=== PATIENT | female | born 1965 | race African-American/Black ===

== ENCOUNTER 2017-09-27 05:46 | Inpatient (IN) | payer OTHER ==
[2017-09-27] VITALS (21 sets, daily range): BP systolic 72–176; BP diastolic 35–89; PULSE 52–58; RESP 12–16; Ht 167.6 cm; Wt 98.5 kg
[~2017-09-27] VITALS: Ht 167.6 cm; Wt 98.5 kg
[2017-09-27] MEDS ORDERED: ONDANSETRON 4 MG INJ IV STA (06:34)
[2017-09-27] MEDS ORDERED: morphine 4 MG/ML VIAL IV STA ×2 (06:34→10:25)
[2017-09-27] MEDS ORDERED: SOD CHLORIDE 0.9% 1,000 ML IV STA (06:34)
--- NOTE | 2017-09-27 06:34 | ERD ---
ER Documentation Chief Complaint Chief Complaint abdominal hernia pain since yesterday HPI 52-year-old female with a history of diabetes mellitus type 2, hypertension, hyperlipidemia and umbilical hernia, ambulatory to the ED complaining of 1 day history of worsening, moderate to severe pain abdominal pain. Nausea but no vomiting, diarrhea or constipation. No hematemesis, hematochezia or melanotic stools. No relieving or exacerbating factors. Last bowel movement was yesterday. Hernia has been irreducible for several years. No chest pain, palpitations or shortness of breath. Denies dysuria, polyuria, hematuria or flank pain. No fevers or chills ROS All systems reviewed and are negative except as per history of present illness. Medications Home Meds Reported Medications Atorvastatin Calcium* (Atorvastatin Calcium*) 20 Mg Tablet, 20 MG PO QHS, #30 TAB 09/27/17 Metformin Hcl* (Metformin Hcl*) 500 Mg Tablet, 500 MG PO WITH DINNER, #30 TAB 09/27/17 Allergies Allergies: Coded Allergies: No Known Drug Allergies (Verified Allergy, Unknown, 09/27/17) PMhx/Soc Reviewed in chart. As per HPI. History of Surgery: No Hx Neurological Disorder: No Hx Respiratory Disorders: No Hx Cardiac Disorders: Yes (Hypertension) Hx Psychiatric Problems: No Hx Miscellaneous Medical Probl: Yes (Diabetes mellitus type 2, hyperlipidemia) Hx Alcohol Use: No Hx Substance Use: No Hx Tobacco Use: No FmHx No family history of stroke or cancer Physical Exam Vitals Vital Signs Date Time Temp Pulse Resp B/P Pulse Ox O2 Delivery O2 Flow Rate FiO2 09/27/17 09:38 65 20 166/80 100 Room Air 09/27/17 05:51 97.6 66 20 202/96 98 Physical Exam Const: Alert, moderate distress due to pain. Head: Atraumatic Eyes: Normal Conjunctiva ENT: Normal External Ears, Nose and Mouth. Neck: Full range of motion. Nontender Resp: Clear to auscultation bilaterally Cardio: Regular rate and rhythm, no murmurs Abd: Soft, obese, large, tender, nonreducible periumbilical hernia. No rebound or guarding. Normal bowel sounds. Skin: No petechiae or rashes Back: No midline or flank tenderness Ext: No cyanosis, or edema Neur: Awake and alert. No focal deficit observed. Psych: Normal Mood and Affect Result Diagram: 09/27/17 0700 09/27/17 0700 Results 24 hrs Laboratory Tests Test 09/27/17 07:00 White Blood Count 10.010^3/ul Red Blood Count 4.6610^6/ul Hemoglobin 14.6g/dl Hematocrit 43.1% Mean Corpuscular Volume 92.5fl Mean Corpuscular Hemoglobin 31.3pg Mean Corpuscular Hemoglobin Concent 33.9g/dl Red Cell Distribution Width 13.2% Platelet Count 26306^3/UL Mean Platelet Volume 10.2fl Neutrophils % 55.4% Lymphocytes % 33.1% Monocytes % 8.1% Eosinophils % 2.2% Basophils % 0.9% Nucleated Red Blood Cells % 0.0/100WBC Neutrophils # 5.610^3/ul Lymphocytes # 3.310^3/ul Monocytes # 0.810^3/ul Eosinophils # 0.210^3/ul Basophils # 0.110^3/ul Nucleated Red Blood Cells # 0.010^3/ul Urine Color STRAW Urine Clarity CLEAR Urine pH 6.0 Urine Specific [place] 1.011 Urine Ketones NEGATIVEmg/dL Urine Nitrite NEGATIVEmg/dL Urine Bilirubin NEGATIVEmg/dL Urine Urobilinogen NEGATIVEmg/dL Urine Leukocyte Esterase NEGATIVELeu/ul Urine Microscopic RBC 0/HPF Urine Microscopic WBC 1/HPF Urine Bacteria FEW/HPF Urine Hemoglobin 1+mg/dL Urine Glucose NEGATIVEmg/dL Urine Total Protein NEGATIVEmg/dl Sodium Level 148mmol/L Potassium Level 3.9mmol/L Chloride Level 109mmol/L Carbon Dioxide Level 26mmol/L Anion Gap 17 Blood Urea Nitrogen 17mg/dl Creatinine 1.48mg/dl Glucose Level 108mg/dl Calcium Level 10.1mg/dl Lipase 133U/L Current Medications Medications (Trade) Dose Ordered Sig/Radha Route PRN Reason Start Time Stop Time Status Last Admin Dose Admin Sodium Chloride (NS) 1,000 ml @ 1,000 mls/hr Q1H STAT IV 09/27/17 06:34 09/27/17 07:33 DC 09/27/17 07:02 Morphine Sulfate (morphine) 4 mg ONCE STAT IV 09/27/17 06:34 09/27/17 06:36 DC 09/27/17 07:00 Ondansetron HCl (Zofran Inj) 4 mg ONCE STAT IV 09/27/17 06:34 09/27/17 06:36 DC 09/27/17 07:01 Ketorolac Tromethamine 15 mg 15 mg ONCE STAT IV 09/27/17 09:02 09/27/17 09:03 DC 09/27/17 09:11 Sodium Chloride (NS) 1,000 ml @ 150 mls/hr Q6H40M ONCE IV 09/27/17 09:21 09/27/17 16:00 Ondansetron HCl (Zofran Inj) 4 mg BRIDGE ORDER PRN IV NAUSEA AND/OR VOMITING 09/27/17 10:00 09/28/17 09:59 Acetaminophen (Tylenol Tab) 650 mg ER BRIDGE PRN PO MILD PAIN/FEVER 09/27/17 10:00 09/28/17 09:59 LABS: Mild hypernatremia and elevated creatinine. Otherwise unremarkable. EKG: Time: 09: 39. Sinus rhythm. Ventricular rate 64. CA interval 214 ms consistent with first-degree AV block. Normal QRS. No acute ST-T wave changes. No ectopy. EP interpretation: Abnormal ECG. IMAGING: Chest AP portable: Cardiac silhouette is normal. The costophrenic angles are clear. No mediastinal widening. No abnormalities of the bony thorax. No effusions or infiltrates. Interpretation: Chest x-ray. PROCEDURE: CT of the abdomen and pelvis without contrast CLINICAL INDICATION: Abdominal pain TECHNIQUE: Spiral CT images through the abdomen and pelvis without the use of contrast. The administered radiation dose is CTDI 20.89 mGy and DLP 1224.64 mGy*cm. Coronal and sagittal reformatted images were submitted. One or more of the following dose reduction techniques were used: automated exposure control, adjustment of the mA and/or kV according to patient size, or use of iterative reconstruction technique. DICOM images are available. COMPARISON: None FINDINGS: Lack of oral and intravenous contrast somewhat limits evaluation. There is bibasilar linear atelectasis. No pleural effusion is seen. The liver, spleen, adrenal glands and pancreas are normal in appearance. There is no evidence of cholelithiasis or biliary ductal dilatation. The kidneys are normal in size and contour. There is no evidence of hydronephrosis or nephrolithiasis. Ill-defined hypodense cortical lesion and a punctate calcification are seen in the upper pole of the left kidney. The aorta is normal in caliber. No adenopathy.. There is no evidence for bowel obstruction , free air, fluid, or abscess. The appendix is normal in appearance. There is colonic diverticulosis without evidence of diverticulitis. There is a large midline ventral hernia containing fat and transverse colon. The proximal transverse colon and ascending colon are markedly distended, measuring up to 8 cm. Abundant stool is present in the proximal ascending colon, cecum with fecal like material in the colon. . The uterus is retroverted, enlarged and lobulated. The bladder is unremarkable. The osseous structures are intact. There are disc bulges or central protrusions at the L4-5 and L5-S1 levels. < IMPRESSION: Large ventral hernia containing fat and transverse colon. Distended proximal transverse and ascending colon. Abundant stool in the proximal ascending colon. Colonic diverticulosis without evidence of acute diverticulitis.. Lobulated enlarged uterus, probable fundal and anterior uterine leiomyomas. Recommend correlation with ultrasound. Calcified hypodense cortical lesion in the upper pole of the left kidney likely complicated cyst.. RPTAT: HCNS Physician Isiah Date Time Electronically viewed and signed by Physician Isiah on 09/27/2017 08: 27 CS/ Procedures/MDM DOCUMENTS REVIEWED: ED nurse, no prior records REEXAMINATION/REEVALUATION: Time: 08:10. Doing well. Pain decreased. Time: 09:00. Worsening pain. Nausea but no vomiting. MEDICAL DECISION MAKIN-year-old female with a history of diabetes mellitus type 2, hypertension, hyperlipidemia and umbilical hernia, ambulatory to the ED complaining of 1 day history of worsening, moderate to severe pain abdominal pain with inability to reduce the hernia. CT scan of the abdomen and pelvis without contrast performed to evaluate for hernia incarceration, bowel obstruction, mesenteric ischemia, abdominal aortic aneurysm, appendicitis, diverticulitis and obstructive uropathy reveals large ventral hernia containing transverse colon with dilated loops of bowel and significant constipation but no bowel obstruction. No acute evidence of strangulation. Surgery, Dr. Lewis consulted. Probable uterine leiomyoma. Poorly controlled hypertension without evidence of hypertensive urgency or emergency. Patient will be admitted for surgical consultation, pain control, further evaluation and management. Counseled patient and family regarding diagnostic workup, diagnosis and need for admission. CALLS/CONSULTS: Time 09:21, Dr. Lewis, will consult CALLS/CONSULTS: Time: 09:34, Dr. Abdi, admit under Dr. Segovia. PATIENT CARE TRANSITIONED: Time: 09:40, Dr. Segovia. 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
[2017-09-27 07:51] LABS: BASOPHIL # 0.1 10^3/ul (0.0-0.1); BASOPHILS % 0.9 % (0.0-2.0); EOSINOPHILS # 0.2 10^3/ul (0.0-0.5); EOSINOPHILS % 2.2 % (0.0-7.0); HEMATOCRIT 43.1 % (37.0-47.0); HEMOGLOBIN 14.6 g/dl (12.0-16.0); LYMPHOCYTES # 3.3 10^3/ul (0.8-2.9); LYMPHOCYTES % 33.1 % (15.0-51.0); MEAN CORPUSCULAR HEMOGLOBIN 31.3 pg (29.0-33.0); MEAN CORPUSCULAR HGB CONC 33.9 g/dl (32.0-37.0); MEAN CORPUSCULAR VOLUME 92.5 fl (82.0-101.0); MEAN PLATELET VOLUME 10.2 fl (7.4-10.4); MONOCYTE # 0.8 10^3/ul (0.3-0.9); MONOCYTES % 8.1 % (0.0-11.0); NEUTROPHIL # 5.6 10^3/ul (1.6-7.5); NEUTROPHILS % 55.4 % (39.0-77.0); PLATELET COUNT 386 10^3/UL (140-415); RED BLOOD COUNT 4.66 10^6/ul (4.20-5.40); RED CELL DISTRIBUTION WIDTH 13.2 % (11.5-14.5)
[2017-09-27 07:54] LABS: ADD UMIC YES; UR ASCORBIC ACID NEGATIVE (NEGATIVE); UR BACTERIA FEW /HPF (NONE SEEN); UR BILIRUBIN (Dip) NEGATIVE (NEGATIVE); UR BLOOD (Dip) 1+ mg/dL (NEGATIVE); UR CLARITY CLEAR (CLEAR); UR COLOR STRAW (YELLOW); UR GLUCOSE (Dip) NEGATIVE (NEGATIVE); UR KETONES (Dip) NEGATIVE (NEGATIVE); UR LEUKOCYTE ESTERASE (Dip) NEGATIVE Leu/ul (NEGATIVE); UR NITRITE (Dip) NEGATIVE (NEGATIVE); UR RBC 0 /HPF (0-5); UR SPECIFIC GRAVITY (Dip) 1.011 (1.003-1.030); UR TOTAL PROTEIN (Dip) NEGATIVE (NEGATIVE); UR UROBILINOGEN (Dip) NEGATIVE (NEGATIVE)
[2017-09-27 08:10] LABS: CALCIUM 10.1 mg/dl (8.4-10.2); CREATININE 1.48 mg/dl (0.44-1.00); POTASSIUM 3.9 mmol/L (3.5-5.1)
--- NOTE | 2017-09-27 08:28 | RADRPT ---
PROCEDURE: CT of the abdomen and pelvis without contrast CLINICAL INDICATION: Abdominal pain TECHNIQUE: Spiral CT images through the abdomen and pelvis without the use of contrast. The admin istered radiation dose is CTDI 20.89 mGy and DLP 1224.64 mGy*cm. Coronal and sagittal reformatted i mages were submitted. One or more of the following dose reduction techniques were used: automated e xposure control, adjustment of the mA and/or kV according to patient size, or use of iterative recon struction technique. DICOM images are available. COMPARISON: None FINDINGS: Lack of oral and intravenous contrast somewhat limits evaluation. There is bibasilar linear atele ctasis. No pleural effusion is seen. The liver, spleen, adrenal glands and pancreas are normal in appearance. There is no evidence of cho lelithiasis or biliary ductal dilatation. The kidneys are normal in size and contour. There is no ev idence of hydronephrosis or nephrolithiasis. Ill-defined hypodense cortical lesion and a punctate ca lcification are seen in the upper pole of the left kidney. The aorta is normal in caliber. No adeno mark.. There is no evidence for bowel obstruction, free air, fluid, or abscess. The appendix is n ormal in appearance. There is colonic diverticulosis without evidence of diverticulitis. There is a large midline ventral hernia containing fat and transverse colon. The proximal transverse colon and ascending colon are markedly distended, measuring up to 8 cm. Abundant stool is present in the prox imal ascending colon, cecum with fecal like material in the colon. . The uterus is retroverted, enla rged and lobulated. The bladder is unremarkable. The osseous structures are intact. There are disc bulges or central protrusions at the L4-5 and L5-S1 levels. < IMPRESSION: Large ventral hernia containing fat and transverse colon. Distended proximal transverse and ascendin g colon. Abundant stool in the proximal ascending colon. Colonic diverticulosis without evidence of acute diverticulitis.. Lobulated enlarged uterus, probable fundal and anterior uterine leiomyomas. Recommend correlation w ith ultrasound. Calcified hypodense cortical lesion in the upper pole of the left kidney likely complicated cyst.. RPTAT: HCNS Cindyy Vahid, Physician Date Time Electronically viewed and signed by Angelina Redding, Physician on 09/27/2017 08:27 CS/
[2017-09-27] MEDS ORDERED: KETOROLAC 15 MG INJ IV STA (09:02)
[2017-09-27] MEDS ORDERED: SOD CHLORIDE 0.9% 1,000 ML IV ONE (09:21)
--- NOTE | 2017-09-27 09:52 | RADRPT ---
PROCEDURE: XR Chest. CLINICAL INDICATION: Pain . Abdominal pain TECHNIQUE: Single frontal chest x-ray. COMPARISON: None. FINDINGS: The lungs are clear of acute infiltrates, edema, effusions, or masses.. The cardiomediastinal silho uette is unremarkable. The osseous structures are intact. IMPRESSION: No acute cardiopulmonary disease. RPTAT: QQ .Thaddeus Hewitt MD, MD Date Time Electronically viewed and signed by .Thaddeus Hewitt MD, MD on 09/27/2017 09:52 .L/
[2017-09-27] MEDS ORDERED: ONDANSETRON 4 MG INJ IV PRN ×3 (10:00→14:30)
[2017-09-27] MEDS ORDERED: ACETAMINOPHEN 325 MG TAB PO PRN ×2 (10:00→10:30)
[2017-09-27] MEDS ORDERED: ATOR20TA38 PO (10:19)
[2017-09-27] MEDS ORDERED: METF500T4 PO (10:19)
--- NOTE | 2017-09-27 10:19 | CONS ---
Date/Time of Note Date/Time of Note DATE: 09/27/17 TIME: 10:16 Assessment/Plan Assessment/Plan Additional Assessment/Plan Incarcerated ventral incisional hernia with visceral involvement Plan: Patient will need urgent intervention in the form of reduction and operative repair with mesh. There is a very remote possibility of bowel resection. Consultation Date/Type/Reason Admit Date/Time Date of Consultation: Sep 27, 2017 Reason for Consultation Incarcerated ventral hernia Hx of Present Illness The patient is a morbidly obese diabetic hypertensive female who has had a many year history of umbilical hernia. Although it has been chronically incarcerated , this is the first time that she has had symptoms of abdominal pain and tenderness. She has not had any visceral symptoms. CT scan shows incarcerated ventral hernia with viscera within it. Constitutional: no complaints Eyes: no complaints Respiratory: no complaints Gastrointestinal: other (As in the HPI) Genitourinary: no complaints Musculoskeletal: no complaints Skin: no complaints Neurologic: no complaints Lymphatic: no complaints Psychological: no complaints Immunologic: no complaints Past Medical History Medical History: diabetes, high cholesterol, hypertension Past Surgical History Past Surgical Hx: no surgical history Family History Significant Family History: no pertinent family hx Social History Smoking Status: Current every day smoker Exam/Review of Systems Vital Signs Vitals Vital Signs Date Time Temp Pulse Resp B/P Pulse Ox O2 Delivery O2 Flow Rate FiO2 09/27/17 09:38 65 20 166/80 100 Room Air 09/27/17 05:51 97.6 Exam Constitutional: alert, oriented Psych: no complaints Eyes: nl conjunctiva ENMT: nl external ears & nose, nl lips & teeth Neck: supple Respiratory: clear to auscultation Cardiovascular: regular rate and rhythm Gastrointestinal: other (Incarcerated supraumbilical ventral hernia) Musculoskeletal: nl extremities to inspection Extremities: normal pulses Neurological: INTERIOR DESIGNER II-XII intact Skin: nl turgor Lymph: nl lymph nodes Results Result Diagram: 09/27/17 0700 09/27/17 0700 Results 24 hrs Laboratory Tests Test 09/27/17 07:00 White Blood Count 10.0 Red Blood Count 4.66 Hemoglobin 14.6 Hematocrit 43.1 Mean Corpuscular Volume 92.5 Mean Corpuscular Hemoglobin 31.3 Mean Corpuscular Hemoglobin Concent 33.9 Red Cell Distribution Width 13.2 Platelet Count 386 Mean Platelet Volume 10.2 Neutrophils % 55.4 Lymphocytes % 33.1 Monocytes % 8.1 Eosinophils % 2.2 Basophils % 0.9 Nucleated Red Blood Cells % 0.0 Neutrophils # 5.6 Lymphocytes # 3.3 H Monocytes # 0.8 Eosinophils # 0.2 Basophils # 0.1 Nucleated Red Blood Cells # 0.0 Urine Color STRAW Urine Clarity CLEAR Urine pH 6.0 Urine Specific [place] 1.011 Urine Ketones NEGATIVE Urine Nitrite NEGATIVE Urine Bilirubin NEGATIVE Urine Urobilinogen NEGATIVE Urine Leukocyte Esterase NEGATIVE Urine Microscopic RBC 0 Urine Microscopic WBC 1 Urine Bacteria FEW A Urine Hemoglobin 1+ H Urine Glucose NEGATIVE Urine Total Protein NEGATIVE Sodium Level 148 H Potassium Level 3.9 Chloride Level 109 Carbon Dioxide Level 26 Anion Gap 17 H Blood Urea Nitrogen 17 Creatinine 1.48 H Glucose Level 108 Calcium Level 10.1 Lipase 133 Medications Medications Current Medications Sodium Chloride (NS) 1,000 ml @ 150 mls/hr Q6H40M ONCE IV ; Start 09/27/17 at 09:21; Stop 09/27/17 at 16:00 ANGELIA CLARKE MD Sep 27, 2017 10:19
[2017-09-27] MEDS ORDERED: HYDR12.58 PO (10:24)
[2017-09-27] MEDS ORDERED: HYDROCODONE/APAP (5/325) TAB PO PRN (10:30)
[2017-09-27] MEDS ORDERED: morphine 2 MG INJ IV PRN ×2 (10:30→14:00)
[2017-09-27] MEDS ORDERED: NACL 0.9% 3 ML SYG IV SCH (10:30)
--- NOTE | 2017-09-27 10:30 | HP ---
Date/Time of Note Date/Time of Note DATE: 09/27/17 TIME: 10:30 Assessment/Plan VTE Prophylaxis VTE Prophylaxis Intervention: SCD's Assessment/Plan Chief Complaint/Hosp Course 1. Incarcerated ventral hernia. -Continue pain control. -N.p.o. -Surgical evaluation. Plan for surgical repair. 2. Essential hypertension. -She will be started on as needed IV antihypertensives. -Start calcium channel blockers. -Hold HCTZ because of worsening renal function. 3. Type 2 diabetes mellitus. -Hold metformin because of worsening renal function. -Start sliding scale insulin. -Obtain hemoglobin A1c. 4. Dyslipidemia. -Obtain fasting lipid panel. -Resume statins once able to tolerate oral intake. 5. Acute nonoliguric kidney injury. -Unknown baseline creatinine. -Hold nephrotoxic medications. 6. Hypernatremia. -Probably secondary to dehydration from poor oral intake. -Continue IV fluids. 7. Lobulated enlarged uterus with probable fundal and anterior uterine leiomyomas. -Obtain pelvic ultrasound after surgical intervention for ventral hernia. Plan: The patient will be admitted to inpatient setting. The patient will be kept n.p.o. The patient will be started on DVT prophylaxis. The patient will remain a full code. Activities will be as tolerated. The rest of the patient's management will be based on the clinical course, inputs from consultants, and the results of diagnostic studies. Based on the patient's clinical presentation, she most probably requires at least 1 midnight's stay for further management and evaluation of her clinical presentation. The patient was seen in collaboration with Dr. Spivey. Problems: HPI/ROS Admit Date/Time Admit Date/Time Hx of Present Illness Reason for admission: Abdominal pain. Consultants 1. Fabian Lewis MD, General Surgery. This is a 52-year-old -[place] female with past medical history essential hypertension, type 2 diabetes mellitus, and dyslipidemia who came to the emergency room with chief complaint of abdominal pain. The patient has known history of ventral hernia that has been increasing in size progressively over the past few years. The patient verbalized that the sudden onset of abdominal pain started on 09/26/2017. The patient denied any associated vomiting or nausea. She verbalized poor appetite. She denied any fevers or chills. Her last bowel movement was on 09/25/2017. The patient's ventral hernia has been chronically incarcerated and the patient's CT scan also revealed incarcerated umbilical hernia. CT scan also revealed incidental finding of lobulated enlarged uterus and probable fundal and anterior uterine leiomyomas. General surgery was consulted by the ER physician and the patient is being taken to the OR for urgent intervention including hernia reduction and operative repair with mesh. ROS Constitutional: poor po Eyes: no complaints ENT: no complaints Respiratory: no complaints Cardiovascular: no complaints Gastrointestinal: pain Genitourinary: no complaints Musculoskeletal: no complaints Skin: no complaints Neurologic: no complaints Endocrine: no complaints Lymphatic: no complaints Psychological: no complaints Immunologic: no complaints PMH/Family/Social Past Medical History Medical History: diabetes, high cholesterol, hypertension Past Surgical History Past Surgical Hx: other (Tubal ligation) Social History Lives at home. Alcohol Use: rarely Smoking Status: Current some day smoker Drug Use: none Exam/Review of Systems Vital Signs Vitals Vital Signs Date Time Temp Pulse Resp B/P Pulse Ox O2 Delivery O2 Flow Rate FiO2 09/27/17 09:38 65 20 166/80 100 Room Air 09/27/17 05:51 97.6 Exam Exam General: Obese 52 year-old female lying in bed in no apparent distress. HEENT: Normocephalic, atraumatic. Eyes: Anicteric sclerae, conjunctivae clear. ENT: Nasal septum midline, oral mucosa moist. Neck supple, no JVD noticed. Respiratory: Bilaterally clear breath sounds. No use of accessory muscles of respiration. No adventitious breath sounds. Cardiovascular: S1, S2 heard. Regular rate and rhythm. Abdomen: Ventral hernia that is irreducible with tenderness. Genitourinary: Deferred. Extremities: No cyanosis, no clubbing, no edema. Peripheral pulses palpable. Neurologic: Cranial nerves II through XII grossly intact. The patient is awake, alert, and oriented. Skin: Normal skin turgor. No skin rashes. Labs Result Diagram: 09/27/17 0700 09/27/17 0700 Medications Medications Current Medications Sodium Chloride (NS) 1,000 ml @ 150 mls/hr Q6H40M ONCE IV ; Start 09/27/17 at 09:21; Stop 09/27/17 at 16:[address] Abdomen and Pelvis IMPRESSION: Large ventral hernia containing fat and transverse colon. Distended proximal transverse and ascending colon. Abundant stool in the proximal ascending colon. Colonic diverticulosis without evidence of acute diverticulitis.. Lobulated enlarged uterus, probable fundal and anterior uterine leiomyomas. Recommend correlation with ultrasound. Calcified hypodense cortical lesion in the upper pole of the left kidney likely complicated cyst. CXR IMPRESSION: No acute cardiopulmonary disease. 12-Lead EKG First-degree AV block. RENE DALY NP Sep 27, 2017 10:30
[2017-09-27] MEDS ORDERED: BUPIVACAINE 0.25% (MPF) 30 ML INJ ONE (10:53)
[2017-09-27] MEDS ORDERED: INSULIN ASPART [NOVOLOG] 3 ML PEN SC SCH (11:00)
[2017-09-27] MEDS ORDERED: hydrALAzine 20 MG INJ IV PRN ×2 (11:00→14:30)
[2017-09-27] MEDS ORDERED: GLUCOSE GEL 15 GRAM TUBE BUCCAL PRN (12:00)
[2017-09-27] MEDS ORDERED: GLUCOSE GEL 15 GRAM TUBE PO PRN ×2 (12:00)
[2017-09-27] MEDS ORDERED: GLUCAGON 1 MG INJ IM PRN (12:00)
[2017-09-27] MEDS ORDERED: DEXTROSE 50% 50 ML SYRINGE IV PRN ×2 (12:00)
[2017-09-27] MEDS ORDERED: Insulin NOVOLOG SS MILD Algorithm (NPO/TPN/ENTERAL FEEDS) SC SCH (13:00)
[2017-09-27] MEDS ORDERED: MIDAZOLAM 1 MG/ML 2 ML INJ ONE (13:04)
[2017-09-27] MEDS ORDERED: METOCLOPRAMIDE 10 MG INJ ONE (13:04)
[2017-09-27] MEDS ORDERED: ROCURONIUM 50 MG INJ ONE (13:08)
[2017-09-27] MEDS ORDERED: PROPOFOL 20 ML ONE (13:08)
[2017-09-27] MEDS ORDERED: ONDANSETRON 4 MG INJ ONE (13:08)
[2017-09-27] MEDS ORDERED: ROPIVACAINE 0.5 % 30 ML VIAL ONE (13:42)
[2017-09-27] MEDS ORDERED: BACITRACIN/POLYMYXIN 28.35 GM OINT TOP ONE (13:46)
[2017-09-27] MEDS ORDERED: KETOROLAC 30 MG INJ ONE (14:00)
[2017-09-27] MEDS ORDERED: NEOSTIGMINE 3 MG/3 ML SYRINGE ONE (14:00)
[2017-09-27] MEDS ORDERED: CEFAZOLIN 1 GM/50 ML (PMX) 50 ML IVPB SCH (14:00)
[2017-09-27] MEDS ORDERED: GLYCOPYRROLATE 0.4 MG INJ ONE (14:00)
--- NOTE | 2017-09-27 14:00 | OPR ---
Date/Time of Note Date/Time of Note DATE: 09/27/17 TIME: 13:56 Operative Report Procedure Date: Sep 27, 2017 Preoperative Diagnosis Incarcerated ventral hernia Postoperative Diagnosis Incarcerated ventral hernia with loop of transverse colon Operation/Procedure Performed Reduction incarcerated ventral hernia and repair with mesh (large ventral X patch) Surgeon Angelia Clarke MD Trailer Steerer None Anesthesia Type: general Anesthesiologist: DILEEP HARRISON MD Estimated Blood Loss: 0 - 10 ml's Transfusion none Specimen Sac Grafts/Implants none Tubes/Drains #19 Round Max Complications none Pt Condition Post Procedure: stable Disposition: PACU Indications Visceral incarceration Procedure Description After satisfactory general endotracheal anesthesia was achieved, a 10 cm vertical midline incision was made from the umbilicus upwards. The dissection continued down to the sac. The sac was dissected from surrounding tissues using electrocautery and blunt dissection. The sac was divided at the fascial edges circumferentially. The sac was entered. The sac contained a loop of transverse colon which was viable. The sac was excised and submitted, and the transverse colon was reduced back into the abdomen. A large ventral X patch was placed as an underlay. Both edges of the fascial defect were approximated with a single suture of #2 Vicryl. The ventral X patch was secured to healthy fascia via its mesh straps utilizing 2 running sutures of 2-0 Novafil. The resultant repair was a tension-free underlay repair with mesh. The wound was infiltrated 30 cc of 0.25% plain Marcaine. Through a separate stab in the upper midline a #19 round Max drain was placed draining the subcutaneous tissues. The skin was closed with joanne and the drain was secured with 2-0 nylon. Sponge and needle counts were reported as correct 2. ANGELIA CLARKE MD Sep 27, 2017 14:00
[2017-09-27] MEDS ORDERED: MEPERIDINE 25 MG INJ ONE (14:18)
[2017-09-27] MEDS ORDERED: HYDROmorphONE 2 MG/ML SYG ONE (14:19)
[2017-09-27] MEDS ORDERED: HYDROmorphONE (0.2 MG/ML) 10ML SYG IV ONE (14:20)
[2017-09-27] MEDS: HYDROmorphONE (0.2 MG/ML) 10ML SYG IV PRN ×5 (14:24→15:41)
[2017-09-27] MEDS ORDERED: HYDROmorphONE (0.2 MG/ML) 10ML SYG IV PRN ×2 (14:30)
[2017-09-27] MEDS ORDERED: LABETALOL HCL 20MG INJ IV PRN (14:30)
[2017-09-27] MEDS ORDERED: DIPHENHYDRAMINE 50 MG INJ IV PRN (14:30)
[2017-09-27] MEDS ORDERED: MEPERIDINE 25 MG INJ IV PRN (14:30)
[2017-09-27] MEDS: INSULIN ASPART [NOVOLOG] 3 ML PEN SC SCH ×2 (17:30→21:00)
[2017-09-27] MEDS: NIFEdipine (XL) 60 MG TAB PO SCH (21:10)
[2017-09-27] MEDS: OXYCODONE/ACETAMINOPHEN (5/325) TAB PO PRN (22:56)
[2017-09-27] MEDS: CEFAZOLIN 1 GM/50 ML (PMX) 50 ML IVPB SCH (22:56)
[2017-09-28] MEDS: ACCU-CHEK XX SCH (02:00)
[2017-09-28] MEDS: OXYCODONE/ACETAMINOPHEN (5/325) TAB PO PRN ×5 (02:34→20:51)
[2017-09-28 05:32] LABS: BASOPHILS % 0.3 % (0.0-2.0); HEMATOCRIT 33.7 % (37.0-47.0); HEMOGLOBIN 11.1 g/dl (12.0-16.0); LYMPHOCYTES # 1.5 10^3/ul (0.8-2.9); LYMPHOCYTES % 13.8 % (15.0-51.0); MEAN CORPUSCULAR HGB CONC 32.9 g/dl (32.0-37.0); MEAN CORPUSCULAR VOLUME 94.1 fl (82.0-101.0); MEAN PLATELET VOLUME 10.3 fl (7.4-10.4); MONOCYTE # 0.6 10^3/ul (0.3-0.9); MONOCYTES % 5.5 % (0.0-11.0); PLATELET COUNT 314 10^3/UL (140-415); RED BLOOD COUNT 3.58 10^6/ul (4.20-5.40); RED CELL DISTRIBUTION WIDTH 13.2 % (11.5-14.5); WHITE BLOOD COUNT 11.2 10^3/ul (4.8-10.8)
[2017-09-28 05:54] LABS: CHOL/HDL RATIO 3.8 RATIO; MAGNESIUM 1.7 mg/dl (1.7-2.5); PHOSPHORUS 3.7 mg/dl (2.5-4.9)
[2017-09-28 06:11] LABS: ALBUMIN 3.6 g/dl (3.3-4.9); ALBUMIN/GLOBULIN RATIO 1.2; BILIRUBIN,INDIRECT 0.4 mg/dl (0-1.1); BILIRUBIN,TOTAL 0.4 mg/dl (0.2-1.3); CALCIUM 9.5 mg/dl (8.4-10.2); CREATININE 1.26 mg/dl (0.44-1.00); POTASSIUM 4.3 mmol/L (3.5-5.1); TOTAL PROTEIN 6.6 g/dl (6.1-8.1)
[2017-09-28 06:14] LABS: INR 0.99; PARTIAL THROMBOPLASTIN TIME 26.4 Sec (25.0-35.0); PROTIME 13.2 Sec (11.9-14.9)
[2017-09-28] MEDS: CEFAZOLIN 1 GM/50 ML (PMX) 50 ML IVPB SCH ×2 (06:20→16:54)
[2017-09-28 08:07] VITALS: BP 167/73; RESP 18
[2017-09-28] MEDS: INSULIN ASPART [NOVOLOG] 3 ML PEN SC SCH ×4 (08:30→21:00)
[2017-09-28] MEDS: NIFEdipine (XL) 60 MG TAB PO SCH ×2 (09:35→20:47)
[2017-09-28] MEDS: INSULIN GLARGINE [LANtus] 3 ML PEN SC SCH (09:36)
[2017-09-28] MEDS ORDERED: NIFE60TA7 PO (09:57)
[2017-09-28] MEDS ORDERED: CEPH-443 PO (09:57)
[2017-09-28] MEDS ORDERED: OXYC-438 PO (09:57)
[2017-09-28] MEDS ORDERED: SENN-53 PO (09:57)
--- NOTE | 2017-09-28 10:02 | PDOCDIS ---
Discharge Instructions DIAGNOSIS Discharge Diagnosis 1. Incarcerated ventral hernia 2. Essential hypertension 3. Type 2 diabetes 4. Subcu 5. Acute kidney injury 6. Lobulated enlarged uterus with probable fundal anterior uterine leiomyomas CONDITION Patient Condition: Stable HOME CARE INSTRUCTIONS: Diet Instructions: Low Fat /CholesterolYour diet recommendation is: carbohydrate controlled FOLLOW UP/APPOINTMENTS Follow-up Plan 1. Follow up with Dr. Fabian Lewis in one week 2. Follow up with your primary care provider in one week PHILOMENA ARNOLD Sep 28, 2017 10:02
--- NOTE | 2017-09-28 13:05 | PN ---
Date/Time of Note Date/Time of Note DATE: 09/28/17 TIME: 13:00 Assessment/Plan VTE Prophylaxis VTE Prophylaxis Intervention: SCD's Lines/Catheters IV Catheter Type (from [facility]): Saline Lock Urinary Cath still in place: No Assessment/Plan Chief Complaint/Hosp Course Assessment and plan 1. Incarcerated ventral hernia. Continue with analgesics. Patient status post surgical intervention with reduction of incarcerated ventral hernia and repair with mesh. Continue with diet. 2. Essential hypertension. Will continue antihypertensives and adjust needed. 3. Type 2 diabetes. Continue insulin regimen. Adjust as needed. Stable at present. 4. Dyslipidemia. Continue on statin medication. 5. AK I. If medications to be renally dosed. Improving at present. Monitor renal panel. 6. Lobulated enlarged uterus with probable fundal anterior uterine leiomyomas. Will order pelvic ultrasound. Will follow up. Disposition plan: Continue with analgesics. Wound care person surgeon. Pelvic ultrasound pending. Discussed plan of care with Dr. Hunter Problems: Subjective 24 Hr Interval Summary Free Text/Dictation Reports less pain in the abdomen. No other specific complaints. Reports able to pass gas. Exam/Review of Systems Vital Signs Vitals Vital Signs Date Time Temp Pulse Resp B/P Pulse Ox O2 Delivery O2 Flow Rate FiO2 09/28/17 08:07 99.1 89 18 167/73 92 09/27/17 15:21 Nasal Cannula 2.0 Intake and Output 09/27/17 09/27/17 09/28/17 14:59 22:59 06:59 Intake Total 1000 ml 300 ml 1610 ml Output Total 10 ml 125 ml 900 ml Balance 990 ml 175 ml 710 ml Exam Constitutional: alert, obese, oriented Psych: nl mood/affect Head: normocephalic Neck: non-tender, supple Respiratory: clear to auscultation Cardiovascular: regular rate and rhythm Gastrointestinal: soft, tender (minimal ) Musculoskeletal: nl gait and stance Neurological: SURGICAL CLINICAL REVIEWER II-XII intact, nl mental status, nl speech Skin: other (drain in place in abd area. dressing cdi ) Results Result Diagram: 09/28/17 0432 09/28/17 0432 Results 24 hrs Laboratory Tests Test 09/27/17 15:29 09/27/17 17:17 09/27/17 21:09 09/28/17 04:32 Bedside Glucose 109 139 125 White Blood Count 11.2 H Red Blood Count 3.58 #L Hemoglobin 11.1 #L Hematocrit 33.7 #L Mean Corpuscular Volume 94.1 Mean Corpuscular Hemoglobin 31.0 Mean Corpuscular Hemoglobin Concent 32.9 Red Cell Distribution Width 13.2 Platelet Count 314 Mean Platelet Volume 10.3 Neutrophils % 80.0 H Lymphocytes % 13.8 L Monocytes % 5.5 Eosinophils % 0.0 Basophils % 0.3 Nucleated Red Blood Cells % 0.0 Neutrophils # 9.0 H Lymphocytes # 1.5 Monocytes # 0.6 Eosinophils # 0.0 Basophils # 0.0 Nucleated Red Blood Cells # 0.0 Prothrombin Time 13.2 Prothrombin Time Ratio 1.0 INR International Normalized Ratio 0.99 Activated Partial Thromboplast Time 26.4 Sodium Level 145 H Potassium Level 4.3 Chloride Level 109 Carbon Dioxide Level 27 Anion Gap 13 Blood Urea Nitrogen 14 Creatinine 1.26 H Glucose Level 120 Calcium Level 9.5 Phosphorus Level 3.7 Magnesium Level 1.7 Total Bilirubin 0.4 Direct Bilirubin 0.00 Indirect Bilirubin 0.4 Aspartate Amino Transf (AST/SGOT) 20 Alanine Aminotransferase (ALT/SGPT) 40 Alkaline Phosphatase 59 Total Protein 6.6 Albumin 3.6 Globulin 3.00 Albumin/Globulin Ratio 1.20 Triglycerides Level 109 Cholesterol Level 144 LDL Cholesterol, Calculated 85 HDL Cholesterol 37 Cholesterol/HDL Ratio 3.8 Test 09/28/17 08:21 09/28/17 12:17 Bedside Glucose 114 136 Medications Medications Current Medications Acetaminophen (Tylenol Tab) 650 mg Q6H PRN PO PAIN LEVEL 1-3 OR FEVER; Start 09/27/17 at 10:30 Acetaminophen/ Hydrocodone Bitart ([place] (5/325)) 1 tab Q6H PRN PO MODERATE PAIN LEVEL 4-6; Start 09/27/17 at 10:30 Morphine Sulfate (morphine) 2 mg Q4H PRN IV SEVERE PAIN LEVEL 7-10; Start at 10:30 Hydralazine HCl (Apresoline) 10 mg Q4H PRN IV SBP>160; Start 09/27/17 at 11:00 Nifedipine (Procardia Xl) 60 mg BID PO Last administered on 09/28/17t 09:35; Admin Dose 60 MG; Start 09/27/17 at 21:00 Diagnostic Test (Pha) (Accu-Chek) 1 ea 02 XX ; Start 09/28/17 at 02:00 Insulin Glargine (Lantus) 15 unit DAILY@08 SC Last administered on 09/28/17 09:36; Admin Dose 15 UNIT; Start 09/28/17 at 08:00 Miscellaneous Information 1 ea NOTE XX ; Start 09/27/17 at 12:00 Glucose (Glutose) 15 gm Q15M PRN PO DECREASED GLUCOSE; Start 09/27/17 at 12:00 Glucose (Glutose) 22.5 gm Q15M PRN PO DECREASED GLUCOSE; Start 09/27/17 at 12: 00 Dextrose (D50w Syringe) 25 ml Q15M PRN IV DECREASED GLUCOSE; Start 09/27/17 at 12:00 Dextrose (D50w Syringe) 50 ml Q15M PRN IV DECREASED GLUCOSE; Start 09/27/17 at 12:00 Glucagon (Glucagen) 1 mg Q15M PRN IM DECREASED GLUCOSE; Start 09/27/17 at 12: 00 Glucose (Glutose) 15 gm Q15M PRN BUCCAL DECREASED GLUCOSE; Start 09/27/17 at 12:00 Oxycodone/ Acetaminophen (Percocet (5/ 325)) 1 tab Q4H PRN PO MILD PAIN (1-3) Last administered on 09/28/17 06:21; Admin Dose 1 TAB; Start 09/27/17 at 14: 00 Oxycodone/ Acetaminophen (Percocet (5/ 325)) 2 tab Q4H PRN PO MODERATE PAIN (4- 6) Last administered on 09/28/17 09:49; Admin Dose 2 TAB; Start 09/27/17 at 14:00 Morphine Sulfate (morphine) 2 mg ONCE PRN IV SEVERE PAIN LEVEL 7-10; Start at 14:00; Stop 09/28/17 at 13:59 Ondansetron HCl 4 mg 4 mg Q6H PRN IV NAUSEA; Start 09/27/17 at 14:00 Cefazolin Sodium (Ancef 1 Gm/50 ml (Pmx)) 50 ml @ 100 mls/hr Q8 IVPB Last administered on 09/28/17 06:20; Admin Dose 100 MLS/HR; Start 09/27/17 at 22: 00; Stop 09/28/17 at 14:29 PHILOMENA ARNOLD Sep 28, 2017 13:05
--- NOTE | 2017-09-28 16:29 | RADRPT ---
PROCEDURE: US Pelvis Transabdominal and Transvaginal. CLINICAL INDICATION: Pelvic pain. Fibroid. TECHNIQUE: Multiple sonographic images of the pelvis were obtained utilizing reynoso scale and color flow imaging with transabdominal and endovaginal technique. The images were reviewed on a PACS wor kstation. COMPARISON: CT September 27, 2017 FINDINGS: The uterus is visualized and measures 8.2 x 7.4 x 6.5 cm. The endometrial echo complex measures 7.3 mm in thickness. Multiple intramural uterine fibroids are identified. The largest measures up to mac roximately 3.7 cm. The uterus is retroflexed. The ovaries are not well visualized. Small to moderate amount of free fluid is seen in the cul-de-sac and left adnexa. Potential debris i s seen within this fluid. IMPRESSION: Multifibroid uterus. Ovaries not well visualized. If characterization of this structure is needed repeat exam or CT/MRI i s recommended. Small to moderate amount of free fluid containing echogenic debris in the cul-de-sac and left adnexa . Etiology of this fluid is uncertain. This could reflect fluid containing proteinaceous debris or a small amount of hemorrhage. If further characterization contrast enhanced CT or MRI could be helpfu l. If further characterization of the organs of the pelvis is needed MRI should be considered. RPTAT: AA .Ranjan Epstein MD, Date Time Electronically viewed and signed by .Ranjan Epstein MD, on 09/28/2017 16:29 .P/
[2017-09-28] MEDS ORDERED: VITAMIN A & D 5 GM OINT PACKET TOP ONE (16:58)
--- NOTE | 2017-09-28 18:12 | PN ---
Date/Time of Note Date/Time of Note DATE: 09/28/17 TIME: 18:11 Assessment/Plan Lines/Catheters IV Catheter Type (from [facility]): Saline Lock Jamil in Place (from [facility]): No Assessment/Plan Chief Complaint/Hosp Course The patient is a morbidly obese diabetic hypertensive female who has had a many year history of umbilical hernia. Although it has been chronically incarcerated , this is the first time that she has had symptoms of abdominal pain and tenderness. She has not had any visceral symptoms. CT scan shows incarcerated ventral hernia with viscera within it. Problems: Assessment/Plan MALINI drain to be removed prior to discharge Cleared for discharge home today Subjective 24 Hr Interval Summary Postoperative day #1 Patient markedly symptomatically improved Exam/Review of Systems Vital Signs Vitals Vital Signs Date Time Temp Pulse Resp B/P Pulse Ox O2 Delivery O2 Flow Rate FiO2 09/28/17 08:07 99.1 89 18 167/73 92 09/27/17 15:21 Nasal Cannula 2.0 Intake and Output 09/27/17 09/27/17 09/28/17 15:00 23:00 07:00 Intake Total 1000 ml 300 ml 1610 ml Output Total 10 ml 125 ml 900 ml Balance 990 ml 175 ml 710 ml Results Result Diagram: 09/28/17 0432 09/28/17 0432 ANGELIA CLARKE MD Sep 28, 2017 18:11
[2017-09-28 20:44] VITALS: BP 162/75; RESP 18
[2017-09-29] MEDS: OXYCODONE/ACETAMINOPHEN (5/325) TAB PO PRN ×4 (01:47→16:03)
[2017-09-29] MEDS: ACCU-CHEK XX SCH (02:00)
[2017-09-29] MEDS: INSULIN ASPART [NOVOLOG] 3 ML PEN SC SCH ×2 (07:20→11:10)
[2017-09-29 08:00] VITALS: BP 128/64; RESP 18
--- NOTE | 2017-09-29 08:09 | PN ---
Date/Time of Note Date/Time of Note DATE: 09/29/17 TIME: 08:07 Assessment/Plan Lines/Catheters IV Catheter Type (from [facility]): Peripheral IV Jamil in Place (from [facility]): No Assessment/Plan Chief Complaint/Hosp Course The patient is a morbidly obese diabetic hypertensive female who has had a many year history of umbilical hernia. Although it has been chronically incarcerated , this is the first time that she has had symptoms of abdominal pain and tenderness. She has not had any visceral symptoms. CT scan shows incarcerated ventral hernia with viscera within it. Problems: Assessment/Plan Ultrasound findings are most consistent with recent hemorrhage from surgery rather than pelvic pathology. The patient had a 10 point drop in her hematocrit the first 24 hours Plan: If H&H stable this morning can discharge Subjective 24 Hr Interval Summary Postoperative day #2 Continues to do well Exam/Review of Systems Vital Signs Vitals Vital Signs Date Time Temp Pulse Resp B/P Pulse Ox O2 Delivery O2 Flow Rate FiO2 09/28/17 20:44 98.3 79 18 162/75 92 09/27/17 15:21 Nasal Cannula 2.0 Intake and Output 09/28/17 09/28/17 09/29/17 15:00 23:00 07:00 Intake Total 1050 ml 750 ml Output Total 90 ml 1100 ml Balance -90 ml 1050 ml -350 ml Results Result Diagram: 09/28/17 0432 09/28/17 0432 ANGELIA CLARKE MD Sep 29, 2017 08:09
[2017-09-29] MEDS: NIFEdipine (XL) 60 MG TAB PO SCH (09:07)
[2017-09-29] MEDS: INSULIN GLARGINE [LANtus] 3 ML PEN SC SCH (09:25)
[2017-09-29 12:38] LABS: BASOPHIL # 0.1 10^3/ul (0.0-0.1); BASOPHILS % 0.6 % (0.0-2.0); EOSINOPHILS # 0.1 10^3/ul (0.0-0.5); HEMATOCRIT 32.7 % (37.0-47.0); HEMOGLOBIN 11.1 g/dl (12.0-16.0); LYMPHOCYTES # 2.6 10^3/ul (0.8-2.9); LYMPHOCYTES % 25.9 % (15.0-51.0); MEAN CORPUSCULAR HEMOGLOBIN 31.4 pg (29.0-33.0); MEAN CORPUSCULAR HGB CONC 33.9 g/dl (32.0-37.0); MEAN CORPUSCULAR VOLUME 92.6 fl (82.0-101.0); MEAN PLATELET VOLUME 9.9 fl (7.4-10.4); MONOCYTE # 0.8 10^3/ul (0.3-0.9); MONOCYTES % 7.8 % (0.0-11.0); NEUTROPHIL # 6.6 10^3/ul (1.6-7.5); NEUTROPHILS % 64.4 % (39.0-77.0); PLATELET COUNT 301 10^3/UL (140-415); RED BLOOD COUNT 3.53 10^6/ul (4.20-5.40); RED CELL DISTRIBUTION WIDTH 13.2 % (11.5-14.5); WHITE BLOOD COUNT 10.2 10^3/ul (4.8-10.8)
[2017-09-29 14:00] VITALS: BP 155/78; RESP 18
== END 2017-09-29 16:25 | disposition home or self-care (01) | DRG 354 ==
LOC: E/R 05:46 → REC 09:40 → MS1 10:32
PROVIDERS: ADMIT Family Medicine; ATTEND Family Medicine
PROC: 0WUF0JZ Supplement Abdominal Wall with Synthetic Substitute, Open Approach (ICD-10-PCS; principal; 2017-09-27 11:30)
DX: K43.0 Incisional hernia with obstruction, without gangrene (principal); N17.9 Acute kidney failure, unspecified; E87.0 Hyperosmolality and hypernatremia; E66.01 Morbid (severe) obesity due to excess calories; I10 Essential (primary) hypertension; D25.9 Leiomyoma of uterus, unspecified; K43.9 Ventral hernia without obstruction or gangrene; Z68.35 Body mass index [BMI] 35.0-35.9, adult; E78.5 Hyperlipidemia, unspecified; E11.9 Type 2 diabetes mellitus without complications
CPT/HCPCS: 36415; 71010; 74176; 76830; 76856; 80048; 80053; 80061; 81001; 82962; 83036; 83690; 83735; 84100; 84439; 84443; 85025; 85610; 85730; 88302; 93005; 96374; 96375; C1781; J0690; J1170; J1815; J1885; J2175; J2250; J2270; J2405; J2710; J2765; J2795; J7030

== ENCOUNTER 2017-10-12 14:22 | Emergency (ER) | END 2017-10-12 16:20 | disposition home or self-care (01) ==